=== PATIENT | female | born 1995 | race African-American/Black ===

== ENCOUNTER 2017-05-22 10:52 | Emergency (ER) | payer SELFPAY ==
[~2017-05-22] VITALS: Ht 154.9 cm; Wt 69.3 kg
[2017-05-22 12:06] LABS: HEMATOCRIT 39.6 % (36.0-46.0); MCH 33.2 PG (29.0-34.0); MCHC 35.4 G/DL (30.0-36.0); MCV 93.8 FL (83-99); PLATELET COUNT 298 K/uL (156-360); RBC DIS.WIDTH-CV 11.9 % (11.8-14.6); RBC DIS.WIDTH-SD 40.7 % (39-53); RED BLOOD COUNT 4.22 M/uL (3.80-5.20); WHITE BLOOD COUNT 9.9 K/uL (4.1-10.2)
[2017-05-22 12:16] LABS: ALBUMIN 4.4 g/dL (3.2-4.8); CHLORIDE 107 mEq/L (99-109); POTASSIUM 3.7 mEq/L (3.7-5.4); SODIUM 139 mEq/L (136-147)
[2017-05-22 12:19] LABS: GLUCOSE 106 mg/dL (70-99); TOTAL PROTEIN 7.8 g/dL (6.4-8.3)
[2017-05-22 12:21] LABS: TOTAL BILIRUBIN 0.8 mg/dL (0.0-1.0)
[2017-05-22 12:22] LABS: ALKALINE PHOSPHATASE 59 IU/L (3-129); CREATININE 0.8 mg/dL (0.6-1.3)
[2017-05-22 12:23] LABS: UREA NITROGEN (BUN) 8 mg/dL (9-23)
[2017-05-22 12:24] LABS: AST (GOT) 22 IU/L (2-34)
[2017-05-22 12:25] LABS: ALT (GPT) 42 IU/L (3-49)
[2017-05-22 12:25] LABS: APPEARANCE SL.HAZY ((CLEAR)); BILIRUBIN NEGATIVE; BLOOD NEGATIVE; COLOR YELLOW ((YELLOW)); GLUCOSE (STRIP) NEGATIVE; KETONES 5; LEUKOCYTES NEGATIVE; NITRITE NEGATIVE; PROTEIN (STRIP) NEGATIVE; SPECIFIC GRAVITY 1.026 (1.000-1.030); UROBILINOGEN 0.2 MG/DL (0.2-1.0)
[2017-05-22 12:31] LABS: QUANTITATIVE HCG < 4.0 MIU/ML
[2017-05-22 12:33] LABS: BACTERIA RARE /HPF; EPITHELIAL CELLS 2+ /HPF; MUCUS 2+ /LPF; UCUL ADDED? NO; WHITE BLOOD CELLS 0-5 /HPF (0-5)
[2017-05-22 12:35] LABS: GFR ESTIMATE (CALCULATED) > 59 mL/min/
[2017-05-22] MEDS ORDERED: ZOFRAN4 MG PO (14:45)
[2017-05-22 15:03] VITALS: BP 133/62
== END 2017-05-22 14:42 | disposition home or self-care (01) ==
LOC: EME 10:52
DX: R10.30 Lower abdominal pain, unspecified (principal); Z90.49 Acquired absence of other specified parts of digestive tract
CPT/HCPCS: 76856; 80053; 81003; 84702; 85027; 99281; 99285

== ENCOUNTER 2017-06-29 18:00 | Emergency (ER) | payer OTHER ==
[~2017-06-29] VITALS: Ht 154.9 cm; Wt 67.0 kg
[~2017-06-29 18:00] MED LIST: ZOFRAN4 MG PO
[2017-06-29 19:08] LABS: HEMATOCRIT 36.2 % (36.0-46.0); MCH 33.1 PG (29.0-34.0); MCHC 35.9 G/DL (30.0-36.0); MCV 92.1 FL (83-99); PLATELET COUNT 270 K/uL (156-360); RBC DIS.WIDTH-CV 12.4 % (11.8-14.6); RBC DIS.WIDTH-SD 42.4 % (39-53); RED BLOOD COUNT 3.93 M/uL (3.80-5.20)
[2017-06-29 19:22] LABS: ALBUMIN 4.6 g/dL (3.2-4.8); CHLORIDE 105 mEq/L (99-109); POTASSIUM 3.5 mEq/L (3.7-5.4); SODIUM 141 mEq/L (136-147)
[2017-06-29 19:25] LABS: GLUCOSE 104 mg/dL (70-99); TOTAL PROTEIN 7.7 g/dL (6.4-8.3)
[2017-06-29 19:27] LABS: TOTAL BILIRUBIN 1.2 mg/dL (0.0-1.0)
[2017-06-29 19:28] LABS: ALKALINE PHOSPHATASE 57 IU/L (3-129); CREATININE 0.7 mg/dL (0.6-1.3); GFR ESTIMATE (CALCULATED) > 59 mL/min/
[2017-06-29 19:29] LABS: UREA NITROGEN (BUN) 5 mg/dL (9-23)
[2017-06-29 19:30] LABS: AST (GOT) 18 IU/L (2-34)
[2017-06-29 19:31] LABS: ALT (GPT) 26 IU/L (3-49)
[2017-06-29 19:32] LABS: LIPASE 5 U/L (1.0-51.0)
[2017-06-29 19:38] LABS: QUANTITATIVE HCG < 4.0 MIU/ML
[2017-06-29 21:04] LABS: APPEARANCE SL.HAZY ((CLEAR)); BILIRUBIN NEGATIVE; BLOOD SMALL; COLOR YELLOW ((YELLOW)); GLUCOSE (STRIP) NEGATIVE; KETONES 80; LEUKOCYTES NEGATIVE; NITRITE NEGATIVE; PROTEIN (STRIP) 30; SPECIFIC GRAVITY 1.021 (1.000-1.030); UROBILINOGEN 0.2 MG/DL (0.2-1.0)
[2017-06-29 21:05] LABS: SOURCE URINE
[2017-06-29 21:15] LABS: BACTERIA NONE SEEN /HPF; EPITHELIAL CELLS 2+ /HPF; MUCUS 2+ /LPF; RED BLOOD CELLS 0-5 /HPF (0-5); UCUL ADDED? NO; WHITE BLOOD CELLS 0-5 /HPF (0-5)
[2017-06-29 21:55] VITALS: BP 116/75
[2017-07-01 13:54] LABS: CHLAMYDIA TRACHOMATIS NEGATIVE; NEISSERIA GONORRHOEAE NEGATIVE
== END 2017-06-29 21:57 | disposition home or self-care (01) ==
LOC: EME 18:00
PROVIDERS: Nurse Practitioner Acute Care; Physician Assistant Medical
DX: N83.201 Unspecified ovarian cyst, right side (principal)
CPT/HCPCS: 76856; 80053; 81003; 83690; 84702; 85027; 87491; 87591; 99281; 99284